=== PATIENT | male | born 1945 | race Caucasian/White ===

== ENCOUNTER 2021-02-06 17:26 | Inpatient (IN) ==
[2021-02-09 16:12] LABS: Bilirubin,Urine Negative (Negative); Blood,Urine Small (Negative); Clarity,Urine Slightly Cloudy (Clear); Glucose,Urine (UA) Normal (Normal); Ketones,Urine Trace mg/dL (Negative); Leukocyte Esterase,Urine Negative (Negative); Nitrite,Urine Negative (Negative); Protein,Urine 30 mg/dL (Neg-Trace); Specific Gravity,Urine 1.015 (1.010-1.025); Urobilinogen,Urine Normal (Normal)
[2021-02-09 16:14] LABS: Color,Urine Yellow (Yellow)
[2021-02-09 16:15] LABS: Amorphous Sediment,Urine Few per hpf (None-Few); RBC,Urine 0-3 per hpf (0-3)
[2021-02-09] MEDS: Acetaminophen 325 MG TABLET PO PRN (16:17)
[2021-02-09] MEDS ORDERED: CefTRIAXone 2,000 MG VIAL IVPB SCH (17:00)
[2021-02-09] MEDS: cefTRIAXone 2,000 MG in Water for inj. (sterile) 20 ML IVP SCH (17:32)
[2021-02-09] MEDS: Melatonin 3 MG TABLET PO SCH (21:27)
[2021-02-10] MEDS: *HR* Enoxaparin 40 MG/0.4 ML SYRINGE SQ SCH (05:03)
[2021-02-10] MEDS: *HR* HYDROcodone/Acet 5/325 mg TABLET PO PRN ×3 (05:03→17:01)
[2021-02-10 05:13] LABS: Basophils % 0.9 %; Eosinophils # 0.3 K/mcL (0.0-0.6); Eosinophils % 8.5 %; Hematocrit 24.4 % (37.5-50.1); Hemoglobin 7.8 g/dL (12.9-16.9); Immature Granulocytes % 0.3 % (0-4); Lymphocytes % 29.9 %; Mean Corpuscular Hemoglobin 30.6 pg (28.0-33.3); Mean Corpuscular Volume 95.7 fL (83.0-100.0); Mean Platelet Volume 9.9 fL (9.4-12.4); Monocytes # 0.4 K/mcL (0.0-1.3); Monocytes % 12.9 %; Neutrophils # 1.5 K/mcL (1.6-8.9); Platelet Count 313 K/mcL (140-400); Red Blood Count 2.55 M/mcL (4.19-5.50); Red Cell Distribution Width 16.3 % (11.5-14.5); Segmented Neutrophils % 47.5 %; White Blood Count 3.2 K/mcL (4.3-11.1)
[2021-02-10 05:29] LABS: Albumin 2.5 g/dL (3.5-5.7); Albumin/Globulin Ratio 0.8 (1.1-2.2); Calcium 7.8 mg/dL (8.6-10.3); Globulin 3.3 g/dL (2.4-3.5); Magnesium 1.6 mg/dL (1.6-2.6); Potassium 3.3 mEq/L (3.5-5.1); Total Protein 5.8 g/dL (6.4-8.9)
[2021-02-10] MEDS ORDERED: CefTRIAXone 2,000 MG VIAL IVPB SCH (09:00)
[2021-02-10] MEDS: cefTRIAXone 2,000 MG in Water for inj. (sterile) 20 ML IVP SCH (09:23)
[2021-02-10] MEDS: Aspirin Enteric Coated 81 MG Tablet PO SCH (09:23)
[2021-02-10] MEDS: Omega-3 Fatty Acids [Fish Oil] 300 MG PO SCH (09:25)
[2021-02-10] MEDS: Melatonin 3 MG TABLET PO SCH (22:33)
[2021-02-11] MEDS: *HR* HYDROcodone/Acet 5/325 mg TABLET PO PRN ×4 (02:36→20:21)
[2021-02-11 06:00] LABS: Hematocrit 24.3 % (37.5-50.1); Hemoglobin 7.7 g/dL (12.9-16.9); Mean Corpuscular HGB Conc 31.7 g/dL (31.6-35.5); Mean Corpuscular Hemoglobin 30.6 pg (28.0-33.3); Mean Corpuscular Volume 96.4 fL (83.0-100.0); Mean Platelet Volume 9.9 fL (9.4-12.4); Platelet Count 301 K/mcL (140-400); Red Blood Count 2.52 M/mcL (4.19-5.50); Red Cell Distribution Width 16.5 % (11.5-14.5); White Blood Count 3.8 K/mcL (4.3-11.1)
[2021-02-11 06:18] LABS: Albumin 2.5 g/dL (3.5-5.7); Albumin/Globulin Ratio 0.7 (1.1-2.2); Bilirubin,Total 0.9 mg/dL (0.3-1.0); Calcium 7.9 mg/dL (8.6-10.3); Globulin 3.5 g/dL (2.4-3.5); Magnesium 1.7 mg/dL (1.6-2.6); Potassium 3.7 mEq/L (3.5-5.1)
[2021-02-11] MEDS: *HR* Enoxaparin 40 MG/0.4 ML SYRINGE SQ SCH (06:20)
[2021-02-11] MEDS: Aspirin Enteric Coated 81 MG Tablet PO SCH (10:33)
[2021-02-11] MEDS: cefTRIAXone 2,000 MG in Water for inj. (sterile) 20 ML IVP SCH (10:34)
[2021-02-11] MEDS: Omega-3 Fatty Acids [Fish Oil] 300 MG PO SCH (10:35)
[2021-02-11] MEDS: Melatonin 3 MG TABLET PO SCH (20:21)
[2021-02-11] MEDS: QUEtiapine Fumarate 25 MG TABLET PO PRN (23:49)
[2021-02-12] MEDS: haloperidoL 5 MG TABLET PO PRN (01:15)
[2021-02-12] MEDS: *HR* Enoxaparin 40 MG/0.4 ML SYRINGE SQ SCH (05:58)
[2021-02-12] MEDS: Aspirin Enteric Coated 81 MG Tablet PO SCH (09:02)
[2021-02-12] MEDS: cefTRIAXone 2,000 MG in Water for inj. (sterile) 20 ML IVP SCH (09:03)
[2021-02-12] MEDS: Omega-3 Fatty Acids [Fish Oil] 300 MG PO SCH (09:04)
[2021-02-12] MEDS: *HR* HYDROcodone/Acet 5/325 mg TABLET PO PRN ×2 (13:31→21:21)
[2021-02-12] MEDS: QUEtiapine Fumarate 25 MG TABLET PO PRN (21:20)
[2021-02-12] MEDS: Melatonin 3 MG TABLET PO SCH (21:21)
[2021-02-13] MEDS: haloperidoL 5 MG TABLET PO PRN ×3 (00:29→23:46)
[2021-02-13] MEDS: *HR* HYDROcodone/Acet 5/325 mg TABLET PO PRN ×3 (06:35→22:16)
[2021-02-13] MEDS: *HR* Heparin 5,000 UNIT/ML VIAL SQ SCH ×3 (06:35→22:16)
[2021-02-13 09:02] LABS: Basophils % 0.9 %; Eosinophils # 0.4 K/mcL (0.0-0.6); Eosinophils % 9.9 %; Hematocrit 26.9 % (37.5-50.1); Hemoglobin 8.5 g/dL (12.9-16.9); Immature Granulocytes % 0.2 % (0-4); Lymphocytes # 1.5 K/mcL (0.6-4.6); Lymphocytes % 34.2 %; Mean Corpuscular HGB Conc 31.6 g/dL (31.6-35.5); Mean Corpuscular Hemoglobin 30.1 pg (28.0-33.3); Mean Corpuscular Volume 95.4 fL (83.0-100.0); Monocytes # 0.4 K/mcL (0.0-1.3); Monocytes % 8.8 %; Platelet Count 322 K/mcL (140-400); Red Blood Count 2.82 M/mcL (4.19-5.50); White Blood Count 4.4 K/mcL (4.3-11.1)
[2021-02-13] MEDS ORDERED: haloperidoL 1 MG TABLET PO ONE (09:35)
[2021-02-13] MEDS: Omega-3 Fatty Acids [Fish Oil] 300 MG PO SCH (09:53)
[2021-02-13 10:06] LABS: BUN/Creatinine Ratio 10 (6-26); Blood Urea Nitrogen 16 mg/dL (8-23); eGFR For African Americans 50 (> 60); eGFR For Non-African Americans 41 (> 60)
[2021-02-13] MEDS: Aspirin Enteric Coated 81 MG Tablet PO SCH (10:29)
[2021-02-13] MEDS: cefTRIAXone 2,000 MG in Water for inj. (sterile) 20 ML IVP SCH (12:16)
[2021-02-13] MEDS: QUEtiapine Fumarate 25 MG TABLET PO PRN (22:15)
[2021-02-13] MEDS: Melatonin 3 MG TABLET PO SCH (22:16)
[2021-02-14] MEDS: *HR* HYDROcodone/Acet 5/325 mg TABLET PO PRN ×3 (02:15→15:37)
[2021-02-14 05:03] LABS: Basophils % 0.7 %; Eosinophils # 0.6 K/mcL (0.0-0.6); Eosinophils % 14.6 %; Hematocrit 25.2 % (37.5-50.1); Hemoglobin 7.9 g/dL (12.9-16.9); Immature Granulocytes % 0.5 % (0-4); Lymphocytes # 1.6 K/mcL (0.6-4.6); Lymphocytes % 39.6 %; Mean Corpuscular HGB Conc 31.3 g/dL (31.6-35.5); Mean Corpuscular Volume 95.8 fL (83.0-100.0); Mean Platelet Volume 10.1 fL (9.4-12.4); Monocytes # 0.5 K/mcL (0.0-1.3); Monocytes % 11.7 %; Neutrophils # 1.4 K/mcL (1.6-8.9); Platelet Count 279 K/mcL (140-400); Red Blood Count 2.63 M/mcL (4.19-5.50); Red Cell Distribution Width 16.2 % (11.5-14.5); Segmented Neutrophils % 32.9 %; White Blood Count 4.1 K/mcL (4.3-11.1)
[2021-02-14 05:10] LABS: Platelet Estimate Normal (Normal)
[2021-02-14 05:16] LABS: BUN/Creatinine Ratio 11 (6-26); Blood Urea Nitrogen 18 mg/dL (8-23); eGFR For African Americans 48 (> 60); eGFR For Non-African Americans 39 (> 60)
[2021-02-14] MEDS: *HR* Heparin 5,000 UNIT/ML VIAL SQ SCH ×3 (06:00→22:31)
[2021-02-14] MEDS: haloperidoL 5 MG TABLET PO PRN ×3 (06:00→22:29)
[2021-02-14] MEDS: Aspirin Enteric Coated 81 MG Tablet PO SCH (09:50)
[2021-02-14] MEDS: cefTRIAXone 2,000 MG in Water for inj. (sterile) 20 ML IVP SCH (09:52)
[2021-02-14] MEDS: Omega-3 Fatty Acids [Fish Oil] 300 MG PO SCH (14:50)
[2021-02-14] MEDS: Acetaminophen 325 MG TABLET PO PRN (17:39)
[2021-02-14] MEDS: QUEtiapine Fumarate 25 MG TABLET PO PRN (22:29)
[2021-02-14] MEDS: Melatonin 3 MG TABLET PO SCH (22:29)
[2021-02-15] MEDS: *HR* HYDROcodone/Acet 5/325 mg TABLET PO PRN ×3 (02:43→21:45)
[2021-02-15] MEDS: *HR* Heparin 5,000 UNIT/ML VIAL SQ SCH ×3 (05:04→21:46)
[2021-02-15 05:05] LABS: Basophils # 0.1 K/mcL (0.0-0.2); Basophils % 0.9 %; Eosinophils # 0.7 K/mcL (0.0-0.6); Eosinophils % 12.1 %; Hematocrit 26.7 % (37.5-50.1); Hemoglobin 8.4 g/dL (12.9-16.9); Immature Granulocytes % 0.2 % (0-4); Lymphocytes # 2.3 K/mcL (0.6-4.6); Lymphocytes % 42.2 %; Mean Corpuscular HGB Conc 31.5 g/dL (31.6-35.5); Mean Corpuscular Hemoglobin 30.1 pg (28.0-33.3); Mean Corpuscular Volume 95.7 fL (83.0-100.0); Mean Platelet Volume 10.2 fL (9.4-12.4); Monocytes # 0.5 K/mcL (0.0-1.3); Monocytes % 9.3 %; Neutrophils # 1.9 K/mcL (1.6-8.9); Platelet Count 346 K/mcL (140-400); Red Blood Count 2.79 M/mcL (4.19-5.50); Red Cell Distribution Width 16.3 % (11.5-14.5); Segmented Neutrophils % 35.3 %; White Blood Count 5.4 K/mcL (4.3-11.1)
[2021-02-15 05:08] LABS: Platelet Estimate Normal (Normal)
[2021-02-15 05:19] LABS: BUN/Creatinine Ratio 10 (6-26); Blood Urea Nitrogen 17 mg/dL (8-23); eGFR For African Americans 49 (> 60); eGFR For Non-African Americans 40 (> 60)
[2021-02-15] MEDS: Acetaminophen 325 MG TABLET PO PRN ×2 (08:40→15:55)
[2021-02-15] MEDS: Aspirin Enteric Coated 81 MG Tablet PO SCH (08:41)
[2021-02-15] MEDS: haloperidoL 5 MG TABLET PO PRN ×3 (08:41→21:44)
[2021-02-15] MEDS: cefTRIAXone 2,000 MG in Water for inj. (sterile) 20 ML IVP SCH (08:43)
[2021-02-15] MEDS: Omega-3 Fatty Acids [Fish Oil] 300 MG PO SCH (08:44)
[2021-02-15] MEDS ORDERED: QUEtiapine Fumarate 25 MG TABLET PO PRN (09:33)
[2021-02-15] MEDS: Melatonin 3 MG TABLET PO SCH (21:43)
[2021-02-15] MEDS: traZODone 50 MG TABLET PO SCH (21:44)
[2021-02-16] MEDS ORDERED: *HR* LORazepam 2 MG/ML VIAL IVP ONE (02:10)
[2021-02-16] MEDS: *HR* Heparin 5,000 UNIT/ML VIAL SQ SCH ×3 (05:42→20:00)
[2021-02-16 06:21] LABS: Basophils # 0.1 K/mcL (0.0-0.2); Eosinophils # 0.5 K/mcL (0.0-0.6); Eosinophils % 11.3 %; Hematocrit 25.3 % (37.5-50.1); Hemoglobin 7.9 g/dL (12.9-16.9); Immature Granulocytes % 0.4 % (0-4); Lymphocytes # 2.1 K/mcL (0.6-4.6); Lymphocytes % 44.9 %; Mean Corpuscular HGB Conc 31.2 g/dL (31.6-35.5); Mean Corpuscular Hemoglobin 29.9 pg (28.0-33.3); Mean Corpuscular Volume 95.8 fL (83.0-100.0); Mean Platelet Volume 10.1 fL (9.4-12.4); Monocytes # 0.5 K/mcL (0.0-1.3); Monocytes % 10.5 %; Neutrophils # 1.5 K/mcL (1.6-8.9); Platelet Count 333 K/mcL (140-400); Red Blood Count 2.64 M/mcL (4.19-5.50); Red Cell Distribution Width 16.4 % (11.5-14.5); Segmented Neutrophils % 31.9 %; White Blood Count 4.8 K/mcL (4.3-11.1)
[2021-02-16 06:49] LABS: BUN/Creatinine Ratio 10 (6-26); Blood Urea Nitrogen 19 mg/dL (8-23); eGFR For African Americans 44 (> 60); eGFR For Non-African Americans 36 (> 60)
[2021-02-16] MEDS: cefTRIAXone 2,000 MG in Water for inj. (sterile) 20 ML IVP SCH (09:26)
[2021-02-16] MEDS: Aspirin Enteric Coated 81 MG Tablet PO SCH (09:31)
[2021-02-16] MEDS: Omega-3 Fatty Acids [Fish Oil] 300 MG PO SCH (09:31)
[2021-02-16] MEDS ORDERED: QUEtiapine Fumarate 25 MG TABLET PO PRN (14:19)
[2021-02-16] MEDS: haloperidoL 5 MG TABLET PO PRN (17:01)
[2021-02-16] MEDS: Acetaminophen 325 MG TABLET PO PRN (19:59)
[2021-02-16] MEDS: traZODone 50 MG TABLET PO SCH (20:00)
[2021-02-16] MEDS: Melatonin 3 MG TABLET PO SCH (20:00)
[2021-02-17] MEDS: haloperidoL 5 MG TABLET PO PRN (05:14)
[2021-02-17] MEDS: *HR* HYDROcodone/Acet 5/325 mg TABLET PO PRN ×3 (05:14→22:04)
[2021-02-17] MEDS: *HR* Heparin 5,000 UNIT/ML VIAL SQ SCH ×3 (05:15→22:14)
[2021-02-17] MEDS: Aspirin Enteric Coated 81 MG Tablet PO SCH (09:36)
[2021-02-17] MEDS: Omega-3 Fatty Acids [Fish Oil] 300 MG PO SCH (09:37)
[2021-02-17] MEDS: cefTRIAXone 2,000 MG in Water for inj. (sterile) 20 ML IVP SCH (09:38)
[2021-02-17 12:14] LABS: Basophils # 0.1 K/mcL (0.0-0.2); Basophils % 0.9 %; Eosinophils # 0.5 K/mcL (0.0-0.6); Eosinophils % 9.1 %; Hematocrit 28.7 % (37.5-50.1); Hemoglobin 8.9 g/dL (12.9-16.9); Immature Granulocytes % 0.7 % (0-4); Lymphocytes # 2.1 K/mcL (0.6-4.6); Lymphocytes % 38.2 %; Mean Corpuscular Hemoglobin 29.9 pg (28.0-33.3); Mean Corpuscular Volume 96.3 fL (83.0-100.0); Mean Platelet Volume 9.6 fL (9.4-12.4); Monocytes # 0.5 K/mcL (0.0-1.3); Monocytes % 9.5 %; Neutrophils # 2.3 K/mcL (1.6-8.9); Platelet Count 392 K/mcL (140-400); Red Blood Count 2.98 M/mcL (4.19-5.50); Red Cell Distribution Width 16.9 % (11.5-14.5); Segmented Neutrophils % 41.6 %; White Blood Count 5.5 K/mcL (4.3-11.1)
[2021-02-17 12:43] LABS: Albumin 3.3 g/dL (3.5-5.7); Albumin/Globulin Ratio 0.8 (1.1-2.2); Bilirubin,Total 0.9 mg/dL (0.3-1.0); Calcium 9.1 mg/dL (8.6-10.3); Globulin 4.2 g/dL (2.4-3.5); Potassium 4.4 mEq/L (3.5-5.1); Total Protein 7.5 g/dL (6.4-8.9)
[2021-02-17] MEDS: traZODone 50 MG TABLET PO SCH (22:02)
[2021-02-17] MEDS: Melatonin 3 MG TABLET PO SCH (22:02)
[2021-02-18] MEDS: *HR* Heparin 5,000 UNIT/ML VIAL SQ SCH ×3 (05:02→22:00)
[2021-02-18] MEDS: *HR* HYDROcodone/Acet 5/325 mg TABLET PO PRN ×3 (05:06→19:44)
[2021-02-18] MEDS: Aspirin Enteric Coated 81 MG Tablet PO SCH (07:46)
[2021-02-18] MEDS: cefTRIAXone 2,000 MG in Water for inj. (sterile) 20 ML IVP SCH (07:47)
[2021-02-18] MEDS: Omega-3 Fatty Acids [Fish Oil] 300 MG PO SCH (07:47)
[2021-02-18] MEDS: Megestrol Acetate 400 MG/10 ML UDC PO SCH (09:06)
[2021-02-18] MEDS: traZODone 50 MG TABLET PO SCH (19:44)
[2021-02-18] MEDS: Melatonin 3 MG TABLET PO SCH (19:45)
[2021-02-19] MEDS: *HR* HYDROcodone/Acet 5/325 mg TABLET PO PRN ×4 (04:46→20:57)
[2021-02-19] MEDS: *HR* Heparin 5,000 UNIT/ML VIAL SQ SCH ×3 (04:46→20:54)
[2021-02-19] MEDS: Megestrol Acetate 400 MG/10 ML UDC PO SCH (09:37)
[2021-02-19] MEDS: cefTRIAXone 2,000 MG in Water for inj. (sterile) 20 ML IVP SCH (09:38)
[2021-02-19] MEDS: Aspirin Enteric Coated 81 MG Tablet PO SCH (09:39)
[2021-02-19] MEDS: Omega-3 Fatty Acids [Fish Oil] 300 MG PO SCH (09:40)
[2021-02-19] MEDS: haloperidoL 5 MG TABLET PO PRN (16:37)
[2021-02-19] MEDS: Melatonin 3 MG TABLET PO SCH (20:54)
[2021-02-19] MEDS: traZODone 50 MG TABLET PO SCH (20:54)
[2021-02-20] MEDS: haloperidoL 5 MG TABLET PO PRN ×2 (03:57→14:26)
[2021-02-20] MEDS: *HR* Heparin 5,000 UNIT/ML VIAL SQ SCH ×3 (03:57→21:52)
[2021-02-20] MEDS: *HR* HYDROcodone/Acet 5/325 mg TABLET PO PRN ×3 (06:08→21:53)
[2021-02-20] MEDS: Megestrol Acetate 400 MG/10 ML UDC PO SCH (08:24)
[2021-02-20] MEDS: cefTRIAXone 2,000 MG in Water for inj. (sterile) 20 ML IVP SCH (08:25)
[2021-02-20] MEDS: Aspirin Enteric Coated 81 MG Tablet PO SCH (08:25)
[2021-02-20] MEDS: Omega-3 Fatty Acids [Fish Oil] 300 MG PO SCH (08:26)
[2021-02-20] MEDS: Melatonin 3 MG TABLET PO SCH (21:53)
[2021-02-20] MEDS: traZODone 50 MG TABLET PO SCH (21:53)
[2021-02-21 04:33] LABS: Hematocrit 27.4 % (37.5-50.1); Hemoglobin 8.5 g/dL (12.9-16.9); Mean Corpuscular Hemoglobin 29.3 pg (28.0-33.3); Mean Corpuscular Volume 94.5 fL (83.0-100.0); Mean Platelet Volume 9.8 fL (9.4-12.4); Platelet Count 324 K/mcL (140-400); Red Cell Distribution Width 16.9 % (11.5-14.5); White Blood Count 5.2 K/mcL (4.3-11.1)
[2021-02-21 04:49] LABS: Albumin 2.9 g/dL (3.5-5.7); Albumin/Globulin Ratio 0.8 (1.1-2.2); Bilirubin,Total 0.8 mg/dL (0.3-1.0); Calcium 8.5 mg/dL (8.6-10.3); Globulin 3.5 g/dL (2.4-3.5); Magnesium 1.8 mg/dL (1.6-2.6); Potassium 4.3 mEq/L (3.5-5.1); Total Protein 6.4 g/dL (6.4-8.9)
[2021-02-21] MEDS: *HR* Heparin 5,000 UNIT/ML VIAL SQ SCH ×3 (05:40→20:37)
[2021-02-21] MEDS: *HR* HYDROcodone/Acet 5/325 mg TABLET PO PRN ×3 (05:40→20:36)
[2021-02-21] MEDS: Aspirin Enteric Coated 81 MG Tablet PO SCH (09:02)
[2021-02-21] MEDS: Megestrol Acetate 400 MG/10 ML UDC PO SCH (09:02)
[2021-02-21] MEDS: cefTRIAXone 2,000 MG in Water for inj. (sterile) 20 ML IVP SCH (09:09)
[2021-02-21] MEDS: Omega-3 Fatty Acids [Fish Oil] 300 MG PO SCH (09:24)
[2021-02-21] MEDS: QUEtiapine Fumarate 25 MG TABLET PO PRN (20:36)
[2021-02-21] MEDS: traZODone 50 MG TABLET PO SCH (20:36)
[2021-02-21] MEDS: Melatonin 3 MG TABLET PO SCH (20:36)
[2021-02-21] MEDS: haloperidoL 5 MG TABLET PO PRN (20:36)
[2021-02-21] MEDS: Temazepam 15 MG CAPSULE PO PRN (20:37)
[2021-02-22] MEDS: *HR* HYDROcodone/Acet 5/325 mg TABLET PO PRN ×2 (06:16→20:54)
[2021-02-22] MEDS: *HR* Heparin 5,000 UNIT/ML VIAL SQ SCH ×3 (06:16→20:54)
[2021-02-22] MEDS: haloperidoL 5 MG TABLET PO PRN (06:16)
[2021-02-22] MEDS: cefTRIAXone 2,000 MG in Water for inj. (sterile) 20 ML IVP SCH (10:28)
[2021-02-22] MEDS: Megestrol Acetate 400 MG/10 ML UDC PO SCH (10:29)
[2021-02-22] MEDS: Omega-3 Fatty Acids [Fish Oil] 300 MG PO SCH (10:33)
[2021-02-22] MEDS: Aspirin Enteric Coated 81 MG Tablet PO SCH (10:33)
[2021-02-22] MEDS ORDERED: haloperidoL 1 MG TABLET PO PRN (11:06)
[2021-02-22] MEDS: QUEtiapine Fumarate 25 MG TABLET PO PRN (20:55)
[2021-02-22] MEDS: Melatonin 3 MG TABLET PO SCH (20:55)
[2021-02-22] MEDS: Valproic Acid 250 MG CAPSULE PO SCH (20:55)
[2021-02-22] MEDS: Temazepam 15 MG CAPSULE PO PRN (20:56)
[2021-02-23] MEDS: *HR* HYDROcodone/Acet 5/325 mg TABLET PO PRN ×4 (05:00→21:33)
[2021-02-23] MEDS: *HR* Heparin 5,000 UNIT/ML VIAL SQ SCH ×3 (05:01→21:31)
[2021-02-23] MEDS: Aspirin Enteric Coated 81 MG Tablet PO SCH (08:35)
[2021-02-23] MEDS: cefTRIAXone 2,000 MG in Water for inj. (sterile) 20 ML IVP SCH (08:36)
[2021-02-23] MEDS: Megestrol Acetate 400 MG/10 ML UDC PO SCH (08:36)
[2021-02-23] MEDS: Omega-3 Fatty Acids [Fish Oil] 300 MG PO SCH (08:38)
[2021-02-23] MEDS: haloperidoL 1 MG TABLET PO PRN (21:32)
[2021-02-23] MEDS: Valproic Acid 250 MG CAPSULE PO SCH (21:32)
[2021-02-23] MEDS: QUEtiapine Fumarate 25 MG TABLET PO PRN (21:33)
[2021-02-23] MEDS: Melatonin 3 MG TABLET PO SCH (21:33)
[2021-02-24] MEDS: *HR* HYDROcodone/Acet 5/325 mg TABLET PO PRN ×4 (01:51→20:20)
[2021-02-24] MEDS: haloperidoL 1 MG TABLET PO PRN ×2 (04:05→15:57)
[2021-02-24] MEDS: *HR* Heparin 5,000 UNIT/ML VIAL SQ SCH ×3 (05:24→20:19)
[2021-02-24] MEDS: Aspirin Enteric Coated 81 MG Tablet PO SCH (08:36)
[2021-02-24] MEDS: Megestrol Acetate 400 MG/10 ML UDC PO SCH (08:36)
[2021-02-24] MEDS: cefTRIAXone 2,000 MG in Water for inj. (sterile) 20 ML IVP SCH (08:37)
[2021-02-24] MEDS: Omega-3 Fatty Acids [Fish Oil] 300 MG PO SCH (12:26)
[2021-02-24] MEDS: Acetaminophen 325 MG TABLET PO PRN (13:12)
[2021-02-24] MEDS: Valproic Acid 250 MG CAPSULE PO SCH (20:20)
[2021-02-24] MEDS: Melatonin 3 MG TABLET PO SCH (20:20)
[2021-02-25] MEDS: QUEtiapine Fumarate 25 MG TABLET PO PRN ×2 (01:00→19:47)
[2021-02-25] MEDS: haloperidoL 1 MG TABLET PO PRN ×2 (01:00→19:47)
[2021-02-25] MEDS: *HR* HYDROcodone/Acet 5/325 mg TABLET PO PRN ×3 (01:59→19:47)
[2021-02-25] MEDS: cefTRIAXone 2,000 MG in Water for inj. (sterile) 20 ML IVP SCH (09:55)
[2021-02-25] MEDS: *HR* Heparin 5,000 UNIT/ML VIAL SQ SCH ×3 (09:56→19:46)
[2021-02-25] MEDS: Megestrol Acetate 400 MG/10 ML UDC PO SCH (09:56)
[2021-02-25] MEDS: Aspirin Enteric Coated 81 MG Tablet PO SCH (09:57)
[2021-02-25] MEDS: Omega-3 Fatty Acids [Fish Oil] 300 MG PO SCH (09:59)
[2021-02-25] MEDS: Valproic Acid 250 MG CAPSULE PO SCH (19:46)
[2021-02-25] MEDS: Melatonin 3 MG TABLET PO SCH (19:47)
[2021-02-25 22:40] LABS: Bilirubin,Urine Negative (Negative); Blood,Urine Trace-intact (Negative); Clarity,Urine Slightly Cloudy (Clear); Glucose,Urine (UA) Normal (Normal); Ketones,Urine Negative (Negative); Leukocyte Esterase,Urine Trace (Negative); Nitrite,Urine Negative (Negative); PH,Urine 6.5 pH Units (5.0-8.0); Protein,Urine 30 mg/dL (Neg-Trace); Specific Gravity,Urine 1.015 (1.010-1.025); Urobilinogen,Urine Normal (Normal)
[2021-02-25 22:43] LABS: Color,Urine Yellow (Yellow)
[2021-02-25 22:53] LABS: Bacteria,Urine Few per hpf (None-Few); RBC,Urine 0-3 per hpf (0-3); WBC,Urine 0-3 per hpf (0-3)
[2021-02-26] MEDS: *HR* HYDROcodone/Acet 5/325 mg TABLET PO PRN ×5 (04:14→21:54)
[2021-02-26] MEDS: *HR* Heparin 5,000 UNIT/ML VIAL SQ SCH ×3 (04:15→20:35)
[2021-02-26 04:33] LABS: Hematocrit 26.2 % (37.5-50.1); Hemoglobin 8.3 g/dL (12.9-16.9); Mean Corpuscular HGB Conc 31.7 g/dL (31.6-35.5); Mean Corpuscular Volume 94.6 fL (83.0-100.0); Mean Platelet Volume 10.2 fL (9.4-12.4); Platelet Count 323 K/mcL (140-400); Red Blood Count 2.77 M/mcL (4.19-5.50); Red Cell Distribution Width 17.1 % (11.5-14.5); White Blood Count 5.9 K/mcL (4.3-11.1)
[2021-02-26 04:54] LABS: Albumin 3.2 g/dL (3.5-5.7); Albumin/Globulin Ratio 0.9 (1.1-2.2); Bilirubin,Total 0.6 mg/dL (0.3-1.0); Calcium 8.6 mg/dL (8.6-10.3); Globulin 3.6 g/dL (2.4-3.5); Magnesium 1.8 mg/dL (1.6-2.6); Potassium 4.7 mEq/L (3.5-5.1); Total Protein 6.8 g/dL (6.4-8.9)
[2021-02-26] MEDS: cefTRIAXone 2,000 MG in Water for inj. (sterile) 20 ML IVP SCH (09:24)
[2021-02-26] MEDS: Megestrol Acetate 400 MG/10 ML UDC PO SCH (09:24)
[2021-02-26] MEDS: Aspirin Enteric Coated 81 MG Tablet PO SCH (09:24)
[2021-02-26] MEDS: Omega-3 Fatty Acids [Fish Oil] 300 MG PO SCH (11:39)
[2021-02-26] MEDS: haloperidoL 1 MG TABLET PO PRN ×2 (13:50→20:36)
[2021-02-26] MEDS: QUEtiapine Fumarate 25 MG TABLET PO PRN (20:36)
[2021-02-26] MEDS: Valproic Acid 250 MG CAPSULE PO SCH (20:36)
[2021-02-26] MEDS: Melatonin 3 MG TABLET PO SCH (20:36)
[2021-02-27] MEDS: *HR* HYDROcodone/Acet 5/325 mg TABLET PO PRN ×4 (04:33→23:51)
[2021-02-27] MEDS: *HR* Heparin 5,000 UNIT/ML VIAL SQ SCH ×3 (04:33→19:39)
[2021-02-27] MEDS: Megestrol Acetate 400 MG/10 ML UDC PO SCH (09:18)
[2021-02-27] MEDS: cefTRIAXone 2,000 MG in Water for inj. (sterile) 20 ML IVP SCH (09:19)
[2021-02-27] MEDS: Aspirin Enteric Coated 81 MG Tablet PO SCH (09:19)
[2021-02-27] MEDS: Omega-3 Fatty Acids [Fish Oil] 300 MG PO SCH (09:19)
[2021-02-27 14:47] LABS: Basophils % 0.4 %; Eosinophils # 0.2 K/mcL (0.0-0.6); Eosinophils % 1.9 %; Hemoglobin 9.3 g/dL (12.9-16.9); Immature Granulocytes % 0.4 % (0-4); Lymphocytes # 2.3 K/mcL (0.6-4.6); Lymphocytes % 24.7 %; Mean Corpuscular HGB Conc 32.1 g/dL (31.6-35.5); Mean Corpuscular Hemoglobin 30.4 pg (28.0-33.3); Mean Corpuscular Volume 94.8 fL (83.0-100.0); Mean Platelet Volume 9.8 fL (9.4-12.4); Monocytes # 0.7 K/mcL (0.0-1.3); Monocytes % 7.9 %; Platelet Count 368 K/mcL (140-400); Red Blood Count 3.06 M/mcL (4.19-5.50); Segmented Neutrophils % 64.7 %; White Blood Count 9.3 K/mcL (4.3-11.1)
[2021-02-27 15:01] LABS: Calcium 9.4 mg/dL (8.6-10.3); Potassium 4.4 mEq/L (3.5-5.1)
[2021-02-27] MEDS: haloperidoL 1 MG TABLET PO PRN ×2 (19:38→23:51)
[2021-02-27] MEDS: Melatonin 3 MG TABLET PO SCH (19:38)
[2021-02-27] MEDS: Valproic Acid 250 MG CAPSULE PO SCH (19:38)
[2021-02-27] MEDS: QUEtiapine Fumarate 25 MG TABLET PO PRN (19:39)
[2021-02-28] MEDS ORDERED: Haloperidol Lactate 5 MG/ML VIAL IVP ONE (00:31)
[2021-02-28] MEDS: *HR* Heparin 5,000 UNIT/ML VIAL SQ SCH ×3 (05:51→19:47)
[2021-02-28] MEDS: Megestrol Acetate 400 MG/10 ML UDC PO SCH (08:32)
[2021-02-28] MEDS: Aspirin Enteric Coated 81 MG Tablet PO SCH (08:32)
[2021-02-28] MEDS: cefTRIAXone 2,000 MG in Water for inj. (sterile) 20 ML IVP SCH (08:32)
[2021-02-28] MEDS: Omega-3 Fatty Acids [Fish Oil] 300 MG PO SCH (08:33)
[2021-02-28] MEDS: *HR* HYDROcodone/Acet 5/325 mg TABLET PO PRN (18:03)
[2021-02-28] MEDS: Melatonin 3 MG TABLET PO SCH (19:46)
[2021-02-28] MEDS: haloperidoL 1 MG TABLET PO PRN (19:46)
[2021-02-28] MEDS: Valproic Acid 250 MG CAPSULE PO SCH (19:46)
[2021-02-28] MEDS: QUEtiapine Fumarate 25 MG TABLET PO PRN (19:46)
[2021-03-01] MEDS: haloperidoL 1 MG TABLET PO PRN (02:57)
[2021-03-01] MEDS: *HR* HYDROcodone/Acet 5/325 mg TABLET PO PRN ×2 (02:57→21:21)
[2021-03-01] MEDS: *HR* Heparin 5,000 UNIT/ML VIAL SQ SCH ×3 (06:02→21:22)
[2021-03-01] MEDS: Megestrol Acetate 400 MG/10 ML UDC PO SCH (09:44)
[2021-03-01] MEDS: cefTRIAXone 2,000 MG in Water for inj. (sterile) 20 ML IVP SCH (09:45)
[2021-03-01] MEDS: Aspirin Enteric Coated 81 MG Tablet PO SCH (09:46)
[2021-03-01] MEDS: Omega-3 Fatty Acids [Fish Oil] 300 MG PO SCH (09:48)
[2021-03-01] MEDS: Acetaminophen 325 MG TABLET PO PRN (15:12)
[2021-03-01] MEDS ORDERED: Fosfomycin Tromethamine 3 GM Packet PO ONE (18:00)
[2021-03-01] MEDS: Melatonin 3 MG TABLET PO SCH (21:19)
[2021-03-01] MEDS: QUEtiapine Fumarate 25 MG TABLET PO SCH (21:21)
[2021-03-02 05:58] LABS: Hematocrit 26.7 % (37.5-50.1); Hemoglobin 8.5 g/dL (12.9-16.9); Mean Corpuscular HGB Conc 31.8 g/dL (31.6-35.5); Mean Corpuscular Hemoglobin 29.6 pg (28.0-33.3); Platelet Count 286 K/mcL (140-400); Red Blood Count 2.87 M/mcL (4.19-5.50); White Blood Count 5.5 K/mcL (4.3-11.1)
[2021-03-02 06:14] LABS: Alanine Aminotransferase 12 Units/L (7-52); Albumin 3.1 g/dL (3.5-5.7); Albumin/Globulin Ratio 0.9 (1.1-2.2); Alkaline Phosphatase 100 Units/L (34-104); Aspartate Amino Transferase 14 Units/L (13-39); BUN/Creatinine Ratio 11 (6-26); Bilirubin,Total 0.6 mg/dL (0.3-1.0); Blood Urea Nitrogen 15 mg/dL (8-23); Calcium 8.8 mg/dL (8.6-10.3); Carbon Dioxide 21 mEq/L (23-29); Chloride 109 mEq/L (98-107); Globulin 3.4 g/dL (2.4-3.5); Glucose 98 mg/dL (70-105); Magnesium 1.7 mg/dL (1.6-2.6); Osmolality,Calculated 289 (280-300); Potassium 4.3 mEq/L (3.5-5.1); Sodium 139 mEq/L (136-145); Total Protein 6.5 g/dL (6.4-8.9); eGFR For African Americans > 60 (> 60); eGFR For Non-African Americans 53 (> 60)
[2021-03-02] MEDS: *HR* Heparin 5,000 UNIT/ML VIAL SQ SCH ×3 (06:40→20:46)
[2021-03-02] MEDS: Megestrol Acetate 400 MG/10 ML UDC PO SCH (09:26)
[2021-03-02] MEDS: Aspirin Enteric Coated 81 MG Tablet PO SCH (09:26)
[2021-03-02] MEDS: cefTRIAXone 2,000 MG in Water for inj. (sterile) 20 ML IVP SCH (09:27)
[2021-03-02] MEDS: Omega-3 Fatty Acids [Fish Oil] 300 MG PO SCH (09:29)
[2021-03-02] MEDS: *HR* HYDROcodone/Acet 5/325 mg TABLET PO PRN ×2 (11:20→18:46)
[2021-03-02] MEDS: QUEtiapine Fumarate 25 MG TABLET PO SCH (20:44)
[2021-03-02] MEDS: Melatonin 3 MG TABLET PO SCH (20:44)
[2021-03-02] MEDS: haloperidoL 1 MG TABLET PO PRN (20:45)
[2021-03-03] MEDS: *HR* HYDROcodone/Acet 5/325 mg TABLET PO PRN ×3 (01:02→17:44)
[2021-03-03] MEDS: *HR* Heparin 5,000 UNIT/ML VIAL SQ SCH ×3 (05:36→19:31)
[2021-03-03] MEDS: Aspirin Enteric Coated 81 MG Tablet PO SCH (09:03)
[2021-03-03] MEDS: Megestrol Acetate 400 MG/10 ML UDC PO SCH (09:03)
[2021-03-03] MEDS: Omega-3 Fatty Acids [Fish Oil] 300 MG PO SCH (09:03)
[2021-03-03] MEDS: cefTRIAXone 2,000 MG in Water for inj. (sterile) 20 ML IVP SCH (09:07)
[2021-03-03] MEDS ORDERED: Fosfomycin Tromethamine 3 GM Packet PO ONE (18:00)
[2021-03-03] MEDS: haloperidoL 1 MG TABLET PO PRN (19:30)
[2021-03-03] MEDS: Melatonin 3 MG TABLET PO SCH (19:31)
[2021-03-03] MEDS: QUEtiapine Fumarate 25 MG TABLET PO SCH (19:31)
[2021-03-04] MEDS: haloperidoL 1 MG TABLET PO PRN (02:25)
[2021-03-04] MEDS: *HR* HYDROcodone/Acet 5/325 mg TABLET PO PRN ×4 (02:25→22:06)
[2021-03-04] MEDS: *HR* Heparin 5,000 UNIT/ML VIAL SQ SCH ×3 (05:19→22:09)
[2021-03-04] MEDS: cefTRIAXone 2,000 MG in Water for inj. (sterile) 20 ML IVP SCH (09:08)
[2021-03-04] MEDS: Aspirin Enteric Coated 81 MG Tablet PO SCH (09:09)
[2021-03-04] MEDS: Omega-3 Fatty Acids [Fish Oil] 300 MG PO SCH (11:53)
[2021-03-04 12:51] LABS: Vitamin B12 433 pg/mL (250-1100)
[2021-03-04] MEDS: Megestrol Acetate 400 MG/10 ML UDC PO SCH (18:09)
[2021-03-04] MEDS: QUEtiapine Fumarate 25 MG TABLET PO SCH (22:06)
[2021-03-04] MEDS: Melatonin 3 MG TABLET PO SCH (22:07)
[2021-03-05] MEDS: *HR* HYDROcodone/Acet 5/325 mg TABLET PO PRN ×4 (05:15→18:35)
[2021-03-05] MEDS: *HR* Heparin 5,000 UNIT/ML VIAL SQ SCH ×3 (05:15→21:23)
[2021-03-05] MEDS: Aspirin Enteric Coated 81 MG Tablet PO SCH (09:53)
[2021-03-05] MEDS: cefTRIAXone 2,000 MG in Water for inj. (sterile) 20 ML IVP SCH (09:57)
[2021-03-05] MEDS: Omega-3 Fatty Acids [Fish Oil] 300 MG PO SCH (10:19)
[2021-03-05] MEDS ORDERED: Fosfomycin Tromethamine 3 GM Packet PO ONE (15:00)
[2021-03-05] MEDS: Acetaminophen 325 MG TABLET PO PRN (21:22)
[2021-03-05] MEDS: Melatonin 3 MG TABLET PO SCH (21:22)
[2021-03-05] MEDS: QUEtiapine Fumarate 25 MG TABLET PO SCH (21:23)
[2021-03-06] MEDS: *HR* HYDROcodone/Acet 5/325 mg TABLET PO PRN ×3 (04:28→20:22)
[2021-03-06] MEDS: *HR* Heparin 5,000 UNIT/ML VIAL SQ SCH ×3 (04:28→20:24)
[2021-03-06] MEDS: cefTRIAXone 2,000 MG in Water for inj. (sterile) 20 ML IVP SCH (08:42)
[2021-03-06] MEDS: Aspirin Enteric Coated 81 MG Tablet PO SCH (08:43)
[2021-03-06] MEDS: Omega-3 Fatty Acids [Fish Oil] 300 MG PO SCH (08:44)
[2021-03-06 12:23] LABS: Basophils % 0.4 %; Eosinophils # 0.4 K/mcL (0.0-0.6); Eosinophils % 4.8 %; Hematocrit 30.4 % (37.5-50.1); Hemoglobin 9.6 g/dL (12.9-16.9); Immature Granulocytes % 0.4 % (0-4); Lymphocytes # 2.1 K/mcL (0.6-4.6); Lymphocytes % 28.8 %; Mean Corpuscular HGB Conc 31.6 g/dL (31.6-35.5); Mean Platelet Volume 10.2 fL (9.4-12.4); Monocytes # 0.9 K/mcL (0.0-1.3); Monocytes % 12.4 %; Neutrophils # 3.9 K/mcL (1.6-8.9); Platelet Count 319 K/mcL (140-400); Red Cell Distribution Width 17.2 % (11.5-14.5); Segmented Neutrophils % 53.2 %; White Blood Count 7.3 K/mcL (4.3-11.1)
[2021-03-06 13:41] LABS: BUN/Creatinine Ratio 23 (6-26); Blood Urea Nitrogen 26 mg/dL (8-23); Calcium 9.3 mg/dL (8.6-10.3); Carbon Dioxide 23 mEq/L (23-29); Chloride 103 mEq/L (98-107); Glucose 97 mg/dL (70-105); Osmolality,Calculated 285 (280-300); Potassium 4.3 mEq/L (3.5-5.1); Sodium 135 mEq/L (136-145); eGFR For African Americans > 60 (> 60); eGFR For Non-African Americans > 60 (> 60)
[2021-03-06] MEDS: Acetaminophen 325 MG TABLET PO PRN (15:48)
[2021-03-06 19:12] LABS: C-Reactive Protein 36 mg/L (Less than 10)
[2021-03-06] MEDS: Melatonin 3 MG TABLET PO SCH (20:22)
[2021-03-06] MEDS: QUEtiapine Fumarate 25 MG TABLET PO SCH (20:23)
[2021-03-07] MEDS: *HR* HYDROcodone/Acet 5/325 mg TABLET PO PRN ×3 (04:41→20:45)
[2021-03-07] MEDS: *HR* Heparin 5,000 UNIT/ML VIAL SQ SCH ×3 (04:43→20:49)
[2021-03-07] MEDS: cefTRIAXone 2,000 MG in Water for inj. (sterile) 20 ML IVP SCH (08:24)
[2021-03-07] MEDS: Omega-3 Fatty Acids [Fish Oil] 300 MG PO SCH (08:24)
[2021-03-07] MEDS: Aspirin Enteric Coated 81 MG Tablet PO SCH (08:24)
[2021-03-07] MEDS: Melatonin 3 MG TABLET PO SCH (20:45)
[2021-03-07] MEDS: QUEtiapine Fumarate 25 MG TABLET PO SCH (20:45)
[2021-03-08] MEDS: *HR* HYDROcodone/Acet 5/325 mg TABLET PO PRN (05:53)
[2021-03-08] MEDS: *HR* Heparin 5,000 UNIT/ML VIAL SQ SCH ×3 (05:54→21:04)
[2021-03-08] MEDS: Aspirin Enteric Coated 81 MG Tablet PO SCH (08:18)
[2021-03-08] MEDS: cefTRIAXone 2,000 MG in Water for inj. (sterile) 20 ML IVP SCH (08:19)
[2021-03-08] MEDS: Omega-3 Fatty Acids [Fish Oil] 300 MG PO SCH (11:08)
[2021-03-08] MEDS: Nystatin POWDER 30 GM BOTTLE TP SCH ×2 (15:27→21:03)
[2021-03-08] MEDS: Nystatin Cream 15 GM TUBE TP SCH ×2 (15:27→21:03)
[2021-03-08] MEDS: Fluconazole 100 MG TABLET PO SCH (15:28)
[2021-03-08] MEDS: QUEtiapine Fumarate 25 MG TABLET PO SCH (21:03)
[2021-03-08] MEDS: Melatonin 3 MG TABLET PO SCH (21:03)
[2021-03-09] MEDS: *HR* Heparin 5,000 UNIT/ML VIAL SQ SCH ×3 (05:52→19:52)
[2021-03-09] MEDS ORDERED: Fluconazole 100 MG TABLET PO SCH (09:00)
[2021-03-09] MEDS: Fluconazole 100 MG TABLET PO SCH (09:43)
[2021-03-09] MEDS: cefTRIAXone 2,000 MG in Water for inj. (sterile) 20 ML IVP SCH (09:43)
[2021-03-09] MEDS: Aspirin Enteric Coated 81 MG Tablet PO SCH (09:43)
[2021-03-09] MEDS: Nystatin POWDER 30 GM BOTTLE TP SCH ×2 (09:48→19:55)
[2021-03-09] MEDS: Nystatin Cream 15 GM TUBE TP SCH ×2 (09:48→19:55)
[2021-03-09] MEDS: Omega-3 Fatty Acids [Fish Oil] 300 MG PO SCH (09:48)
[2021-03-09] MEDS: *HR* HYDROcodone/Acet 5/325 mg TABLET PO PRN ×3 (09:54→19:52)
[2021-03-09] MEDS: Melatonin 3 MG TABLET PO SCH (19:52)
[2021-03-09] MEDS: haloperidoL 1 MG TABLET PO PRN (19:52)
[2021-03-09] MEDS: QUEtiapine Fumarate 25 MG TABLET PO SCH (19:52)
[2021-03-10] MEDS: *HR* HYDROcodone/Acet 5/325 mg TABLET PO PRN ×2 (00:07→10:38)
[2021-03-10] MEDS: *HR* Heparin 5,000 UNIT/ML VIAL SQ SCH ×2 (06:59→13:29)
[2021-03-10 07:15] VITALS: BP 137/83
[2021-03-10] MEDS: Aspirin Enteric Coated 81 MG Tablet PO SCH (08:29)
[2021-03-10] MEDS: Nystatin Cream 15 GM TUBE TP SCH (08:30)
[2021-03-10] MEDS: Fluconazole 100 MG TABLET PO SCH (08:30)
[2021-03-10] MEDS: Nystatin POWDER 30 GM BOTTLE TP SCH (08:31)
[2021-03-10] MEDS: Omega-3 Fatty Acids [Fish Oil] 300 MG PO SCH (09:34)
[2021-03-10] MEDS ORDERED: cefTRIAXone 2,000 MG in Water for inj. (sterile) 20 ML IVP SCH (11:00)
== END 2021-03-10 15:52 | disposition home health service (06) | DRG 945 ==
LOC: INPGRE 02-09 14:22 → SUATTDRO 02-09 14:22 → INPGRE 03-01 15:07
PROVIDERS: ADMIT Family Medicine; ATTEND Family Medicine